=== PATIENT | female | born 1960 | race Caucasian/White ===

== ENCOUNTER 2023-08-11 10:04 | Outpatient (RCR) | payer MEDICARE, BC, SELFPAY | END 2023-08-11 23:59 | disposition home or self-care (01) | LOC: RPT 10:04 | PROVIDERS: ATTENDING PHYSICIAN Obstetrics & Gynecology; FAMILY PHYSICIAN Family Medicine | DX: N94.10 Unspecified dyspareunia (principal); M62.89 Other specified disorders of muscle; Z73.6 Limitation of activities due to disability | CPT/HCPCS: 97110; 97162; 97535 ==

== ENCOUNTER 2023-09-12 12:01 | Outpatient (RCR) | payer MEDICARE, BC, SELFPAY | END 2023-09-12 23:59 | disposition home or self-care (01) | LOC: RPT 12:01 | PROVIDERS: ATTENDING PHYSICIAN Obstetrics & Gynecology; FAMILY PHYSICIAN Family Medicine | DX: M62.89 Other specified disorders of muscle (principal); N94.10 Unspecified dyspareunia; Z73.6 Limitation of activities due to disability | CPT/HCPCS: 97110; 97112 ==

== ENCOUNTER 2023-10-24 10:26 | Outpatient (RCR) | payer MEDICARE, BC, SELFPAY | END 2023-10-24 23:59 | disposition home or self-care (01) | LOC: RPT 10:26 | PROVIDERS: ATTENDING PHYSICIAN Obstetrics & Gynecology; FAMILY PHYSICIAN Family Medicine | DX: M62.89 Other specified disorders of muscle (principal); N94.10 Unspecified dyspareunia; Z73.6 Limitation of activities due to disability | CPT/HCPCS: 97110; 97112 ==

== ENCOUNTER 2023-11-26 19:02 | Outpatient (RCR) | payer MEDICARE, BC, SELFPAY | END 2023-11-26 23:59 | disposition home or self-care (01) | LOC: RPT 19:02 | PROVIDERS: ATTENDING PHYSICIAN Obstetrics & Gynecology; FAMILY PHYSICIAN Family Medicine | DX: M62.89 Other specified disorders of muscle (principal); N94.10 Unspecified dyspareunia; R32 Unspecified urinary incontinence; Z73.6 Limitation of activities due to disability | CPT/HCPCS: 97110; 97112 ==

== ENCOUNTER 2023-12-11 13:11 | Outpatient (RCR) | payer MEDICARE, BC, SELFPAY | END 2023-12-11 23:59 | disposition home or self-care (01) | LOC: RPT 13:11 | PROVIDERS: ATTENDING PHYSICIAN Obstetrics & Gynecology; FAMILY PHYSICIAN Family Medicine | DX: M62.89 Other specified disorders of muscle (principal); N94.10 Unspecified dyspareunia; Z73.6 Limitation of activities due to disability | CPT/HCPCS: 97110; 97112 ==

== ENCOUNTER → 2023-12-30 13:47 | Outpatient (REF) | payer MEDICARE, BC, SELFPAY | LOC: HWRAD 13:47 | PROVIDERS: ATTENDING PHYSICIAN Obstetrics & Gynecology Gynecology; FAMILY PHYSICIAN Family Medicine | DX: R93.89 Abnormal findings on diagnostic imaging of other specified body structures (principal) | CPT/HCPCS: 76830; 76856 ==

== ENCOUNTER 2024-01-23 13:17 | Outpatient (RCR) | payer MEDICARE, BC, SELFPAY | END 2024-01-23 23:59 | disposition home or self-care (01) | LOC: RPT 13:17 | PROVIDERS: ATTENDING PHYSICIAN Obstetrics & Gynecology; FAMILY PHYSICIAN Family Medicine | DX: M62.89 Other specified disorders of muscle (principal); N94.10 Unspecified dyspareunia; Z73.6 Limitation of activities due to disability | CPT/HCPCS: 97110; 97112 ==

== ENCOUNTER → 2024-04-26 11:47 | Outpatient (REF) | payer MEDICARE, BC, SELFPAY | LOC: HWWDC 11:47 | PROVIDERS: ATTENDING PHYSICIAN Obstetrics & Gynecology Gynecology; FAMILY PHYSICIAN Family Medicine | DX: Z12.31 Encounter for screening mammogram for malignant neoplasm of breast (principal) | CPT/HCPCS: 77063; 77067 ==

== ENCOUNTER → 2025-04-27 13:27 | Outpatient (REF) | payer MEDICARE, BC, SELFPAY | LOC: WDC 13:27 | PROVIDERS: ATTENDING PHYSICIAN Obstetrics & Gynecology Gynecology; FAMILY PHYSICIAN Family Medicine | DX: M81.0 Age-related osteoporosis without current pathological fracture (principal); Z12.31 Encounter for screening mammogram for malignant neoplasm of breast | CPT/HCPCS: 77063; 77067; 77080 ==